=== PATIENT | female | born 1950 | race Caucasian/White ===

== ENCOUNTER → 2019-05-21 14:45 | Outpatient (CLI) | payer SELFPAY ==
[2019-05-21 14:57] LABS: Cytology, Body Fluid / CSF SEE PATHOLOGY REPORT
--- NOTE | 2019-05-22 | CYSPIN_PTH ---
PATIENT: HARPREET MARLOW LOC: [facility] U#:[id number] AGE/SX: 74/F ROOM: RE05/21/[address]: Dr. Gopal Hui MD : [id number] BED: DIS: SPEC #: [id number] RECD: 05/22/19 11:44 STATUS: EDEN KARSON #: [id number] DONY: 05/22/19 00:[address]: Gopal Hui DEPT: CYTOLOGY RECD BY: Umesh Bell Tissues: Urine Procedures: Pap Stain (control) Special Stain Group II Cytospin Fluid HEADER OPERATION: Not noted PRE-OP DIAGNOSIS: Hematuria TISSUE SUBMITTED: Urine for cytology DIAGNOSIS CYTOLOGY Urine for cytology (cytospin): A cluster of atypical urothelial cells noted. Acute inflammation. See comment. BREANNA:angely 05/23/19 COMMENT The specimen predominantly consists of squamous epithelial cells. The differential diagnosis includes infection, calculi or low-grade urothelial neoplasm. Clinical correlation and appropriate follow up are necessary. Case has been reviewed in consultation with Dr. Shaw who concurs with the above diagnosis. IDC:AM CYTOLOGY STUDY Slides are reviewed. CYTOLOGY GROSS Received is 15 ml of yellow cloudy fluid labeled with the patient's name and and designated per the requisition as urine. Submitted for cytology preparation. / angely 05/22/19 TC:5 [facility]: [id number]
== END ==
PROVIDERS: Referring Provider Urology; Visit Provider Urology
DX: R31.1 Benign essential microscopic hematuria (principal)
CPT/HCPCS: 88108; 88313

== ENCOUNTER → 2019-05-25 14:14 | Outpatient (CLI) | payer MEDICARE, SELFPAY ==
--- NOTE | 2019-05-25 14:23 | CT_ITS ---
STUDY: CT ABDOMEN AND PELVIS WITH AND WITHOUT CONTRAST REASON FOR EXAM: Female, 68 years old. HEMATURIA X 1 YR. RADIATION DOSAGE (If Supplied By Facility): CTDIvol = ( 11.62 ) mGy, DLP = ( 1437.57 ) mGycm TECHNIQUE: Transaxial images were obtained from the dome of the diaphragm to the symphysis pubis without oral contrast. IV 100mL Isovue-300 was administered. Sagittal and coronal images were reconstructed. Individualized dose optimization techniques were used for this CT. COMPARISON: None. FINDINGS: Minimal linear scarring at the left lung base. Coronary artery calcification. There is decreased attenuation of the liver consistent with steatosis. There are surgical clips in the gallbladder fossa consistent with a prior cholecystectomy. Normal spleen. Normal pancreas. Normal bilateral adrenal glands. Normal right kidney. Normal left kidney. Normal visualized stomach. Normal small intestine. There are scattered colonic diverticula consistent with diverticulosis. The appendix is visualized and appears normal. There is diffuse atherosclerotic calcification of the abdominal aorta and the major visceral branches, without a demonstrated aneurysm. Normal inferior vena cava. Normal retroperitoneum. The urinary bladder is only partially filled. Normal abdominal wall. There are mild degenerative changes of the visualized lumbar spine. CT/CT Abd/Pelvis W/WO Contrast IMPRESSION: Fatty infiltration of the liver. Status post cholecystectomy. Electronically Signed: Michele Mead, at 15:03 EDT , Service support ,
[2019-05-25 14:36] LABS: CREATININE FINGERSTICK 1.1 mg/dL (0.55-1.02)
== END ==
PROVIDERS: Referring Provider Urology; Visit Provider Urology
DX: R31.9 Hematuria, unspecified (principal); R82.89 Other abnormal findings on cytological and histological examination of urine
CPT/HCPCS: 74178; Q9967